=== PATIENT | female | born 1985 | race Hispanic/Latino ===

== ENCOUNTER 2021-08-10 08:36 | Outpatient (CLI) | payer OTHER ==
[2021-08-11 07:48] LABS: SARS-CoV-2 PCR by NAA DETECTED (NotDetected)
== END 2021-08-10 08:37 | disposition home or self-care (01) ==
LOC: CSHLAB 08:36
PROVIDERS: ATTEND Student in an Organized Health Care Education/Training Program
DX: U07.1 COVID-19 (principal)
CPT/HCPCS: U0003; U0005

== ENCOUNTER 2021-08-15 18:00 | Inpatient (IN) | payer OTHER, SELFPAY ==
[2021-08-16 01:44] VITALS: BMI 34.9
[2021-08-16] MEDS ORDERED: Penicillin G Potassium 5 MILL.UNITS VIAL ONE (02:32)
[2021-08-16] MEDS ORDERED: Butorphanol Tartrate 1 MG/ML VIAL SLOW IVP PRN (02:48)
[2021-08-16] MEDS ORDERED: Acetaminophen 500 MG TAB PO PRN (02:48)
[2021-08-16] MEDS ORDERED: Carboprost 250 MCG/ML AMP IM PRN (02:48)
[2021-08-16] MEDS ORDERED: Diphenoxylate HCl/Atropine Tablet PO PRN (02:48)
[2021-08-16] MEDS ORDERED: Ibuprofen 800 MG TAB PO PRN (02:48)
[2021-08-16] MEDS ORDERED: Methylergonovine 0.2 MG/ML VIAL IM PRN (02:48)
[2021-08-16] MEDS ORDERED: Ondansetron PF 4 MG/2 ML Vial IVP PRN ×2 (02:48→10:54)
[2021-08-16] MEDS ORDERED: hydrALAZINE 20 MG/ML VIAL SLOW IVP PRN ×2 (02:48→14:24)
[2021-08-16] MEDS ORDERED: Promethazine HCl 25 MG/ML VIAL IM PRN ×2 (02:48→10:54)
[2021-08-16] MEDS ORDERED: Lidocaine 1% (PF) 30 ML VIAL SC PRN (02:48)
[2021-08-16] MEDS ORDERED: Misoprostol 200 MCG TAB PR PRN (02:48)
[2021-08-16] MEDS ORDERED: Penicillin G Potassium 5 MILL.UNITS in Sodium Chloride 0.9% 100 ML IVPB SCH (03:00)
[2021-08-16] MEDS ORDERED: NS w/ Oxytocin 30 units 500 ML IV SCH (03:00)
[2021-08-16] MEDS ORDERED: Lactated Ringer's 1,000 ML IV SCH (03:00)
[2021-08-16 03:37] LABS: Hep B Surf Ag Non-Reactive S/CO (NonReactive); Syphilis Antibody Nonreactive (Nonreactive); Syphilis Antibody Index 0.05 S/CO (<1.00 Non-Reactive)
[2021-08-16 03:54] LABS: Hemoglobin 11.6 g/dL (12.0-15.5); Mean Corpuscular HGB CONC 34.7 g/dL (32.0-36.0); Mean Corpuscular Hemoglobin 31.3 pg (27.0-33.0); Mean Platelet Volume 12.7 fl (7.4-10.4); Platelet Count 95 10x3/uL (150-450); RBC Distribution Width 13.2 % (11.5-14.5); Red Blood Cell (RBC) Count 3.71 10x6/uL (3.90-5.03); White Blood Cell (WBC) Count 6.9 10x3/uL (3.5-10.5)
[2021-08-16 03:55] LABS: HBSAg Index 0.15 S/CO (0-0.99)
[2021-08-16] MEDS: Misoprostol 100 MCG TAB VAG SCH ×3 (05:40→14:54)
[2021-08-16] MEDS: Penicillin G 2.5 MILL.units 2.5 MILL.UNITS in Premix Bag 1 BAG IVPB SCH ×2 (06:35→11:02)
[2021-08-16] MEDS ORDERED: Bupivacaine 0.25% HCL 30 ML VIAL ONE (08:00)
[2021-08-16] MEDS ORDERED: Fentanyl 2 mcg/Bup 0.1% Cadd 100 ML ONE (10:21)
[2021-08-16 10:43] LABS: ALT (SGPT) 20 U/L (8-55); AST (SGOT) 27 U/L (5-34); Albumin 2.9 g/dL (3.5-5.0); Alkaline Phosphatase 233 U/L (40-110); Anion Gap 14 mmol/L (10-20); BUN (Urea Nitrogen) 6 mg/dL (7.0-18.7); Bilirubin, Total 0.9 mg/dL (0.2-1.2); Calc. Creatinine Clearance 170 mL/min (70-130); Calcium 8.5 mg/dL (7.8-10.44); Carbon Dioxide 20 mmol/L (22-29); Chloride 108 mmol/L (98-107); Globulin 3.6 g/dL (2.4-3.5); Glucose 84 mg/dL (70-105); Potassium 3.5 mmol/L (3.5-5.1); Protein, Total 6.5 g/dL (6.0-8.3); Sodium 138 mmol/L (136-145)
[2021-08-16] MEDS ORDERED: Acetaminophen 325 MG TAB PO PRN (10:54)
[2021-08-16] MEDS ORDERED: Lactated Ringer's 500 ML IV PRN (10:54)
[2021-08-16] MEDS ORDERED: diphenhydrAMINE 50 MG/ML VIAL IVP PRN (10:54)
[2021-08-16] MEDS ORDERED: ePHEDrine Sulfate 50 MG/10 ML VIAL SLOW IVP PRN (10:54)
[2021-08-16] MEDS ORDERED: Naloxone HCl 0.4 mg/ml Vial IVP PRN ×2 (10:54)
[2021-08-16] MEDS ORDERED: Hydrocerin (Eucerin) Cream 120 gm Jar TOP PRN (10:54)
[2021-08-16] MEDS ORDERED: Communication Order-Pharmacy FS SCH (11:00)
[2021-08-16] MEDS ORDERED: Fentanyl 2 mcg/Bupivacaine 0.1% Cassette 100 ML EPIDURAL SCH (11:00)
[2021-08-16] MEDS ORDERED: Benzonatate 100 MG CAP PO PRN (12:39)
[2021-08-16] MEDS ORDERED: Guaifenesin DM 100-10/5 ML UDCUP PO PRN (12:59)
[2021-08-16] MEDS ORDERED: Bisacodyl 10 MG SUPP PR PRN (14:24)
[2021-08-16] MEDS ORDERED: Preparation H Ointment 28 GM TUBE PR PRN (14:24)
[2021-08-16] MEDS ORDERED: Lanolin Ointment 7 GM TUBE TOP PRN (14:24)
[2021-08-16] MEDS ORDERED: diphenhydrAMINE 25 MG CAP PO PRN (14:24)
[2021-08-16] MEDS ORDERED: Milk Of Magnesia 30 ML UDCUP PO PRN (14:24)
[2021-08-16] MEDS ORDERED: Benzocaine-Menthol 82.5 ML CAN TOP PRN (14:24)
[2021-08-16] MEDS: Ibuprofen 800 MG TAB PO SCH ×2 (15:49→23:00)
[2021-08-16] MEDS: Ferrous Sulfate 325 MG TAB PO SCH (18:36)
[2021-08-16] MEDS: Docusate 100 MG CAP PO SCH (20:10)
[2021-08-16 23:27] LABS: Creatinine, Urine 54.9 mg/dL (47-110)
[2021-08-17] MEDS: Ferrous Sulfate 325 MG TAB PO SCH (07:39)
[2021-08-17] MEDS ORDERED: Prenatal Vitamin 1 TAB PO SCH (09:00)
[2021-08-17] MEDS: Docusate 100 MG CAP PO SCH (10:04)
[2021-08-17] MEDS: Ibuprofen 800 MG TAB PO SCH (10:04)
[2021-08-17 11:13] VITALS: BP 121/84; TEMP 97.7
[2021-08-17] MEDS ORDERED: Measles/Mumps/Rubella 10 MCG/0.5 ML VIAL SC ONE (14:24)
[2021-08-17] MEDS ORDERED: Boostrix 0.5 ML (Tdap) VIAL IM ONE (14:24)
[2021-08-17] MEDS ORDERED: Varicella virus, LIVE 0.5 ML VIAL SC ONE (14:24)
== END 2021-08-17 16:20 | disposition home or self-care (01) | DRG 805 ==
LOC: CSHLD 08-16 00:26 → CSHANTE 08-16 14:30
PROVIDERS: ADMIT Student in an Organized Health Care Education/Training Program; ATTEND Student in an Organized Health Care Education/Training Program
PROC: 10E0XZZ Delivery of Products of Conception, External Approach (ICD-10-PCS; principal; 2021-08-16)
PROC: 0HQ9XZZ Repair Perineum Skin, External Approach (ICD-10-PCS; 2021-08-16)
DX: O99.824 Streptococcus B carrier state complicating childbirth (principal); U07.1 COVID-19; Z37.0 Single live birth; O98.52 Other viral diseases complicating childbirth; O99.12 Other diseases of the blood and blood-forming organs and certain disorders involving the immune mechanism complicating childbirth; D69.6 Thrombocytopenia, unspecified; O99.02 Anemia complicating childbirth; D64.9 Anemia, unspecified; O70.0 First degree perineal laceration during delivery; O13.4 Gestational [pregnancy-induced] hypertension without significant proteinuria, complicating childbirth; Z3A.39 39 weeks gestation of pregnancy
CPT/HCPCS: 36415; 51702; 80053; 82570; 84156; 85027; 86780; 86850; 86900; 86901; 87340; J2540; S0020